=== PATIENT | male | born 1990 | race Caucasian/White ===

== ENCOUNTER 2018-08-27 07:13 | Emergency (ER) | payer MEDICAID ==
[~2018-08-27] VITALS: Ht 195.6 cm; Wt 90.7 kg
[2018-08-27 07:13] VITALS: BP_SYST 114
[2018-08-27 08:34] LABS: CALCIUM 8.6 mg/dL (8.4-11.0); CREATININE 0.7 mg/dL (0.55-1.30); POTASSIUM 4.2 mmol/L (3.5-5.1)
[2018-08-27 08:38] LABS: PROTHROMBIN TIME 10.3 SECS (9.5-12.5)
[2018-08-27 08:40] LABS: ALBUMIN 3.7 g/dL (3.4-4.8); TOTAL BILIRUBIN 0.4 mg/dL (0.0-1.0)
[2018-08-27 08:43] LABS: EOSINOPHILS # (AUTO) 0.2 K/uL (0.0-0.4); EOSINOPHILS % (AUTO) 4.5 % (0.0-4.0); HEMATOCRIT 46.2 % (36-54); HEMOGLOBIN 15.6 g/dL (14.0-18.0); LYMPHOCYTES # (AUTO) 1.1 K/uL (1.0-5.5); LYMPHOCYTES % (AUTO) 23.4 % (20.5-51.5); MEAN CORPUSCULAR HEMOGLOBIN 32 pg (27-31); MEAN CORPUSCULAR HGB CONC 34 % (32-36); MEAN CORPUSCULAR VOLUME 93 fL (79.0-98.0); MONOCYTES # (AUTO) 0.4 K/uL (0.0-1.0); MONOCYTES % (AUTO) 8.1 % (1.7-9.3); NEUTROPHILS # (AUTO) 3.2 K/uL (1.8-7.7); PLATELET COUNT (AUTO) 207 K/uL (130-430); RED BLOOD CELL COUNT(AUTO) 4.97 MIL/uL (4.2-6.2); RED CELL DISTRIBUTION WIDTH 12.1 % (9.0-15.0); WHITE BLOOD COUNT (AUTO) 4.9 K/uL (4.8-10.8)
[2018-08-27 09:20] VITALS: BP_SYST 115
== END 2018-08-27 09:20 | disposition home or self-care (01) ==
LOC: SED 07:13
DX: J06.9 Acute upper respiratory infection, unspecified (principal); F84.0 Autistic disorder
CPT/HCPCS: 36415; 71046-TC; 80053; 83880; 85025; 85379; 85610-TC; 85730-TC; 93005; 99284